=== PATIENT | male | born 1975 | race Caucasian/White ===

== ENCOUNTER 2018-01-10 10:08 | Inpatient (IN) | payer BC ==
[2018-01-10] MEDS: PIPER-TAZO 3.375 GM IV (PMX) 100 ML IVPB ×2 (12:22→18:10)
[2018-01-10] MEDS: SOD CHLORIDE 0.9% 1,000 ML IV ×2 (12:22→18:10)
[2018-01-10 12:36] LABS: ADD MAN DIFF? NO
[2018-01-10 12:39] LABS: WHITE BLOOD COUNT 9.1 10^3/ul (4.8-10.8)
[2018-01-10 12:39] LABS: BASOPHIL # 0.1 10^3/ul (0.0-0.1); BASOPHILS % 0.9 % (0.0-2.0); EOSINOPHILS # 0.2 10^3/ul (0.0-0.5); EOSINOPHILS % 2.4 % (0.0-7.0); HEMATOCRIT 38.1 % (42.0-52.0); HEMOGLOBIN 12.6 g/dl (14.0-18.0); LYMPHOCYTES # 3.1 10^3/ul (0.8-2.9); LYMPHOCYTES % 33.6 % (15.0-51.0); MEAN CORPUSCULAR HEMOGLOBIN 28.8 pg (29.0-33.0); MEAN CORPUSCULAR HGB CONC 33.1 g/dl (32.0-37.0); MEAN PLATELET VOLUME 12.1 fl (7.4-10.4); MONOCYTE # 0.6 10^3/ul (0.3-0.9); MONOCYTES % 6.6 % (0.0-11.0); NEUTROPHIL # 5.1 10^3/ul (1.6-7.5); NEUTROPHILS % 56.2 % (39.0-77.0); PLATELET COUNT 228 10^3/UL (140-415); RED BLOOD COUNT 4.38 10^6/ul (4.70-6.10)
[2018-01-10 12:57] LABS: ANION GAP 14 (8-16); BLOOD UREA NITROGEN 19 mg/dl (7-20); CALCIUM 9.1 mg/dl (8.4-10.2); CARBON DIOXIDE 29 mmol/L (21-31); CHLORIDE 103 mmol/L (97-110); CREATININE 0.81 mg/dl (0.61-1.24); GLUCOSE 333 mg/dl (70-220); POTASSIUM 4.5 mmol/L (3.5-5.1); SODIUM 141 mmol/L (135-144)
[2018-01-10 12:58] LABS: INR 0.88; PT RATIO 0.9
[2018-01-10 12:59] LABS: PARTIAL THROMBOPLASTIN TIME 30.9 Sec (25.0-35.0)
[2018-01-10] MEDS: ONDANSETRON 4 MG INJ IV (13:06)
[2018-01-10] MEDS: morphine 4 MG/ML VIAL IV (13:06)
[2018-01-10] MEDS ORDERED: VANCOMYCIN IV PER PHARMACY XX ×2 (16:30→17:30)
[2018-01-10] MEDS ORDERED: NACL 0.9% 3 ML SYG IV (17:30)
[2018-01-10] MEDS ORDERED: ACETAMINOPHEN 325 MG TAB PO (17:30)
[2018-01-10] MEDS ORDERED: MAGNESIUM HYDROXIDE 30ML CUP PO (17:30)
[2018-01-10] MEDS ORDERED: ZOLPIDEM 5 MG TAB PO (17:30)
[2018-01-10] MEDS ORDERED: DOCUSATE SODIUM 100 MG CAP PO (17:30)
[2018-01-10] MEDS: morphine 2 MG INJ IV ×2 (17:42→22:03)
[2018-01-10] MEDS ORDERED: GLUCOSE GEL 15 GRAM TUBE BUCCAL (18:00)
[2018-01-10] MEDS ORDERED: GLUCOSE GEL 15 GRAM TUBE PO ×2 (18:00)
[2018-01-10] MEDS ORDERED: GLUCAGON 1 MG INJ IM (18:00)
[2018-01-10] MEDS ORDERED: DEXTROSE 50% 50 ML SYRINGE IV ×2 (18:00)
[2018-01-10] MEDS: INSULIN ASPART [NOVOLOG] 3 ML PEN SC ×2 (18:14→21:09)
[2018-01-10] MEDS: VANCOMYCIN 1.75 GM in SOD CHLORIDE 0.9% 500 ML IVPB (19:27)
[2018-01-10] MEDS: NPH, HUMAN INSULIN ISOPHANE 3ML VIAL SC (19:28)
[2018-01-10] MEDS: HYDROCODONE/APAP (5/325) TAB PO (19:56)
[2018-01-10] MEDS: ATORVASTATIN 20 MG TAB PO (21:07)
[2018-01-10] MEDS: INSULIN GLARGINE [LANtus] 3 ML PEN SC (21:10)
[2018-01-11] MEDS: PIPER-TAZO 3.375 GM IV (PMX) 100 ML IVPB ×2 (02:09→12:18)
[2018-01-11] MEDS: ACCU-CHEK XX (02:09)
[2018-01-11] MEDS: HYDROCODONE/APAP (5/325) TAB PO ×2 (02:15→08:32)
[2018-01-11] MEDS: PANTOPRAZOLE (EC) 40 MG TAB PO (05:46)
[2018-01-11] MEDS: VANCOMYCIN 1.75 GM in SOD CHLORIDE 0.9% 500 ML IVPB ×2 (05:46→17:27)
[2018-01-11] MEDS: morphine 2 MG INJ IV ×3 (05:47→14:21)
[2018-01-11 06:21] LABS: ADD MAN DIFF? NO
[2018-01-11 06:40] LABS: BASOPHIL # 0.1 10^3/ul (0.0-0.1); BASOPHILS % 0.8 % (0.0-2.0); EOSINOPHILS # 0.3 10^3/ul (0.0-0.5); EOSINOPHILS % 3.4 % (0.0-7.0); HEMATOCRIT 33.4 % (42.0-52.0); HEMOGLOBIN 11.2 g/dl (14.0-18.0); LYMPHOCYTES # 3.1 10^3/ul (0.8-2.9); LYMPHOCYTES % 41.5 % (15.0-51.0); MEAN CORPUSCULAR HEMOGLOBIN 29.4 pg (29.0-33.0); MEAN CORPUSCULAR HGB CONC 33.5 g/dl (32.0-37.0); MEAN CORPUSCULAR VOLUME 87.7 fl (82.0-101.0); MEAN PLATELET VOLUME 12.3 fl (7.4-10.4); MONOCYTE # 0.5 10^3/ul (0.3-0.9); MONOCYTES % 6.2 % (0.0-11.0); NEUTROPHIL # 3.6 10^3/ul (1.6-7.5); PLATELET COUNT 210 10^3/UL (140-415); RED BLOOD COUNT 3.81 10^6/ul (4.70-6.10); RED CELL DISTRIBUTION WIDTH 13.1 % (11.5-14.5)
[2018-01-11 06:40] LABS: WHITE BLOOD COUNT 7.6 10^3/ul (4.8-10.8)
[2018-01-11 07:02] LABS: ALANINE AMINOTRANSFERASE 17 IU/L (13-69); ALBUMIN/GLOBULIN RATIO 0.96; ALKALINE PHOSPHATASE 78 IU/L (42-121); ANION GAP 10 (8-16); ASPARTATE AMINO TRANSFERASE 12 IU/L (15-46); BILIRUBIN,INDIRECT 0.1 mg/dl (0-1.1); BILIRUBIN,TOTAL 0.1 mg/dl (0.2-1.3); BLOOD UREA NITROGEN 21 mg/dl (7-20); CALCIUM 8.7 mg/dl (8.4-10.2); CARBON DIOXIDE 31 mmol/L (21-31); CHLORIDE 108 mmol/L (97-110); GLUCOSE 130 mg/dl (70-220); MAGNESIUM 1.6 mg/dl (1.7-2.5); PHOSPHORUS 3.7 mg/dl (2.5-4.9); POTASSIUM 4.1 mmol/L (3.5-5.1); SODIUM 145 mmol/L (135-144); TOTAL PROTEIN 6.1 g/dl (6.1-8.1)
[2018-01-11] MEDS: INSULIN ASPART [NOVOLOG] 3 ML PEN SC ×4 (08:15→20:36)
[2018-01-11] MEDS: ENOXAPARIN 40 MG/0.4 ML SYG SC (08:35)
[2018-01-11] MEDS: NPH, HUMAN INSULIN ISOPHANE 3ML VIAL SC ×3 (09:15→17:33)
[2018-01-11] MEDS: MAGNESIUM OXIDE 400 MG TAB PO ×2 (12:23→20:37)
[2018-01-11] MEDS: SOD CHLORIDE 0.9% 1,000 ML IV (13:13)
[2018-01-11] MEDS: CEFTRIAXONE 1 GM/50 ML (PMX) 50 ML IVPB (14:21)
[2018-01-11] MEDS: OXYCODONE/ACETAMINOPHEN (5/325) TAB PO ×2 (16:27→20:37)
[2018-01-11] MEDS: morphine LIQ (10 MG/5 ML) CUP PO ×2 (18:59→23:12)
[2018-01-11] MEDS: ATORVASTATIN 20 MG TAB PO (20:36)
[2018-01-11] MEDS: INSULIN GLARGINE [LANtus] 3 ML PEN SC (20:42)
[2018-01-12] MEDS: ACCU-CHEK XX (02:00)
[2018-01-12] MEDS: OXYCODONE/ACETAMINOPHEN (5/325) TAB PO ×2 (02:37→20:51)
[2018-01-12] MEDS: PANTOPRAZOLE (EC) 40 MG TAB PO (05:08)
[2018-01-12] MEDS: morphine LIQ (10 MG/5 ML) CUP PO (05:08)
[2018-01-12] MEDS: SOD CHLORIDE 0.9% 1,000 ML IV ×2 (05:35→09:13)
[2018-01-12 05:36] LABS: ADD MAN DIFF? NO
[2018-01-12 05:40] LABS: BASOPHIL # 0.1 10^3/ul (0.0-0.1); BASOPHILS % 0.7 % (0.0-2.0); EOSINOPHILS # 0.2 10^3/ul (0.0-0.5); EOSINOPHILS % 3.2 % (0.0-7.0); HEMATOCRIT 35.8 % (42.0-52.0); HEMOGLOBIN 11.8 g/dl (14.0-18.0); LYMPHOCYTES # 2.7 10^3/ul (0.8-2.9); LYMPHOCYTES % 38.3 % (15.0-51.0); MEAN CORPUSCULAR HEMOGLOBIN 29.1 pg (29.0-33.0); MEAN CORPUSCULAR VOLUME 88.2 fl (82.0-101.0); MEAN PLATELET VOLUME 11.6 fl (7.4-10.4); MONOCYTE # 0.5 10^3/ul (0.3-0.9); MONOCYTES % 6.8 % (0.0-11.0); NEUTROPHIL # 3.6 10^3/ul (1.6-7.5); NEUTROPHILS % 50.9 % (39.0-77.0); PLATELET COUNT 226 10^3/UL (140-415); RED BLOOD COUNT 4.06 10^6/ul (4.70-6.10)
[2018-01-12 05:40] LABS: WHITE BLOOD COUNT 7.1 10^3/ul (4.8-10.8)
[2018-01-12 06:07] LABS: VANCOMYCIN,TROUGH 13.7 ug/ml (10.0-20.0)
[2018-01-12] MEDS: VANCOMYCIN 1.75 GM in SOD CHLORIDE 0.9% 500 ML IVPB ×2 (06:38→17:08)
[2018-01-12] MEDS: INSULIN ASPART [NOVOLOG] 3 ML PEN SC ×4 (08:17→20:42)
[2018-01-12] MEDS: NPH, HUMAN INSULIN ISOPHANE 3ML VIAL SC ×3 (08:18→17:12)
[2018-01-12] MEDS: ENOXAPARIN 40 MG/0.4 ML SYG SC (08:25)
[2018-01-12] MEDS: HYDROmorphONE 0.5 MG/0.5 ML SYG IV ×4 (08:30→22:48)
[2018-01-12] MEDS: CEFTRIAXONE 1 GM/50 ML (PMX) 50 ML IVPB (12:26)
[2018-01-12] MEDS: ATORVASTATIN 20 MG TAB PO (20:38)
[2018-01-12] MEDS: INSULIN GLARGINE [LANtus] 3 ML PEN SC (20:42)
[2018-01-13] MEDS: ACCU-CHEK XX (02:00)
[2018-01-13] MEDS: HYDROmorphONE 0.5 MG/0.5 ML SYG IV ×5 (02:59→21:15)
[2018-01-13] MEDS: PANTOPRAZOLE (EC) 40 MG TAB PO (05:47)
[2018-01-13] MEDS: VANCOMYCIN 1.75 GM in SOD CHLORIDE 0.9% 500 ML IVPB ×2 (05:47→17:28)
[2018-01-13 06:46] LABS: ANION GAP 14 (8-16); BLOOD UREA NITROGEN 20 mg/dl (7-20); CALCIUM 8.5 mg/dl (8.4-10.2); CARBON DIOXIDE 29 mmol/L (21-31); CHLORIDE 107 mmol/L (97-110); CREATININE 0.77 mg/dl (0.61-1.24); GLUCOSE 113 mg/dl (70-220); POTASSIUM 3.9 mmol/L (3.5-5.1); SODIUM 146 mmol/L (135-144)
[2018-01-13] MEDS: INSULIN ASPART [NOVOLOG] 3 ML PEN SC ×4 (08:15→20:59)
[2018-01-13] MEDS: NPH, HUMAN INSULIN ISOPHANE 3ML VIAL SC ×3 (09:04→17:31)
[2018-01-13] MEDS: ENOXAPARIN 40 MG/0.4 ML SYG SC (09:05)
[2018-01-13] MEDS: morphine LIQ (10 MG/5 ML) CUP PO (09:25)
[2018-01-13] MEDS: CEFTRIAXONE 1 GM/50 ML (PMX) 50 ML IVPB (12:49)
[2018-01-13] MEDS: ATORVASTATIN 20 MG TAB PO (20:47)
[2018-01-13] MEDS: INSULIN GLARGINE [LANtus] 3 ML PEN SC (20:55)
[2018-01-14] MEDS: DEXTROSE 5%-0.45% NACL 1,000 ML IV ×2 (00:15→20:00)
[2018-01-14] MEDS: HYDROmorphONE 0.5 MG/0.5 ML SYG IV ×5 (01:23→23:08)
[2018-01-14] MEDS: ACCU-CHEK XX (02:00)
[2018-01-14] MEDS: PANTOPRAZOLE (EC) 40 MG TAB PO (05:32)
[2018-01-14] MEDS: VANCOMYCIN 1.75 GM in SOD CHLORIDE 0.9% 500 ML IVPB ×2 (05:48→20:03)
[2018-01-14] MEDS: NPH, HUMAN INSULIN ISOPHANE 3ML VIAL SC ×4 (08:00→17:45)
[2018-01-14] MEDS: INSULIN ASPART [NOVOLOG] 3 ML PEN SC ×4 (08:05→22:25)
[2018-01-14] MEDS: ENOXAPARIN 40 MG/0.4 ML SYG SC (09:00)
[2018-01-14] MEDS: CEFTRIAXONE 1 GM/50 ML (PMX) 50 ML IVPB (12:34)
[2018-01-14] MEDS: ONDANSETRON 4 MG INJ IV (15:43)
[2018-01-14] MEDS: POLYMYXIN/BACITRACIN 1L IRRIG (16:14)
[2018-01-14] MEDS: LIDOCAINE 2% (MDV) 20 ML INJ (16:15)
[2018-01-14] MEDS ORDERED: FENTAnyl 50 MCG/ML VIAL (17:24)
[2018-01-14] MEDS ORDERED: MIDAZOLAM 1 MG/ML 2 ML INJ (17:24)
[2018-01-14] MEDS ORDERED: PROPOFOL 20 ML (17:24)
[2018-01-14] MEDS ORDERED: ONDANSETRON 4 MG INJ (17:38)
[2018-01-14] MEDS ORDERED: CEFAZOLIN 1 GM INJ (17:38)
[2018-01-14] MEDS ORDERED: DEXAMETHASONE 4 MG/ML 1 ML INJ (17:38)
[2018-01-14] MEDS ORDERED: KETOROLAC 30 MG INJ (17:38)
[2018-01-14] MEDS ORDERED: METOCLOPRAMIDE 10 MG INJ (17:38)
[2018-01-14] MEDS ORDERED: PHENYLephrine (100 MCG/ML) 5ML SYG (17:39)
[2018-01-14] MEDS ORDERED: HYDROmorphONE (0.2 MG/ML) 10ML SYG IV ×2 (18:00)
[2018-01-14] MEDS ORDERED: METOCLOPRAMIDE 10 MG INJ IV (18:00)
[2018-01-14] MEDS ORDERED: LABETALOL HCL 20MG INJ IV (18:00)
[2018-01-14] MEDS ORDERED: EPHEDrine SULFATE 50 MG/5 ML SYG IV (18:00)
[2018-01-14] MEDS ORDERED: OXYCODONE/ACETAMINOPHEN (5/325) TAB PO (18:00)
[2018-01-14] MEDS ORDERED: FENTAnyl 50 MCG/ML VIAL IV ×3 (18:00)
[2018-01-14] MEDS ORDERED: ONDANSETRON 4 MG INJ IV (18:00)
[2018-01-14] MEDS ORDERED: ROPIVACAINE 0.5 % 30 ML VIAL (18:01)
[2018-01-14] MEDS: BUPIVACAINE 0.5% (SDV) 30 ML INJ (18:09)
[2018-01-14] MEDS: HYDROmorphONE (0.2 MG/ML) 10ML SYG IV ×2 (18:42→18:57)
[2018-01-14] MEDS: OXYCODONE/ACETAMINOPHEN (5/325) TAB PO (20:11)
[2018-01-14] MEDS: ATORVASTATIN 20 MG TAB PO (22:21)
[2018-01-14] MEDS: INSULIN GLARGINE [LANtus] 3 ML PEN SC (22:24)
[2018-01-15] MEDS: ACCU-CHEK XX (02:02)
[2018-01-15] MEDS: HYDROmorphONE 0.5 MG/0.5 ML SYG IV ×5 (03:12→22:57)
[2018-01-15] MEDS: PANTOPRAZOLE (EC) 40 MG TAB PO (05:27)
[2018-01-15 06:32] LABS: VANCOMYCIN,TROUGH 15.3 ug/ml (10.0-20.0)
[2018-01-15] MEDS: VANCOMYCIN 1.75 GM in SOD CHLORIDE 0.9% 500 ML IVPB ×2 (06:42→17:35)
[2018-01-15] MEDS: NPH, HUMAN INSULIN ISOPHANE 3ML VIAL SC ×3 (08:12→17:35)
[2018-01-15] MEDS: INSULIN ASPART [NOVOLOG] 3 ML PEN SC ×4 (08:12→20:49)
[2018-01-15] MEDS: ENOXAPARIN 40 MG/0.4 ML SYG SC (08:12)
[2018-01-15] MEDS: OXYCODONE/ACETAMINOPHEN (5/325) TAB PO ×2 (11:12→16:29)
[2018-01-15] MEDS: CEFTRIAXONE 1 GM/50 ML (PMX) 50 ML IVPB (13:08)
[2018-01-15] MEDS: ATORVASTATIN 20 MG TAB PO (20:43)
[2018-01-15] MEDS: INSULIN GLARGINE [LANtus] 3 ML PEN SC (20:49)
[2018-01-16] MEDS: ACCU-CHEK XX (02:00)
[2018-01-16] MEDS: HYDROmorphONE 0.5 MG/0.5 ML SYG IV ×5 (03:00→22:29)
[2018-01-16] MEDS: PANTOPRAZOLE (EC) 40 MG TAB PO (06:06)
[2018-01-16] MEDS: VANCOMYCIN 1.75 GM in SOD CHLORIDE 0.9% 500 ML IVPB ×2 (06:07→17:34)
[2018-01-16 06:34] LABS: BLOOD UREA NITROGEN 18 mg/dl (7-20)
[2018-01-16 06:34] LABS: CREATININE 0.73 mg/dl (0.61-1.24)
[2018-01-16] MEDS: NPH, HUMAN INSULIN ISOPHANE 3ML VIAL SC ×3 (07:53→17:34)
[2018-01-16] MEDS: INSULIN ASPART [NOVOLOG] 3 ML PEN SC ×4 (07:54→21:07)
[2018-01-16] MEDS: ENOXAPARIN 40 MG/0.4 ML SYG SC (08:49)
[2018-01-16] MEDS: OXYCODONE/ACETAMINOPHEN (5/325) TAB PO ×2 (09:37→15:34)
[2018-01-16] MEDS: CEFTRIAXONE 1 GM/50 ML (PMX) 50 ML IVPB (12:32)
[2018-01-16] MEDS: ATORVASTATIN 20 MG TAB PO (21:00)
[2018-01-16] MEDS: INSULIN GLARGINE [LANtus] 3 ML PEN SC (21:07)
[2018-01-17] MEDS: OXYCODONE/ACETAMINOPHEN (5/325) TAB PO ×4 (01:54→23:08)
[2018-01-17] MEDS: ACCU-CHEK XX (02:00)
[2018-01-17] MEDS: HYDROmorphONE 0.5 MG/0.5 ML SYG IV ×5 (02:47→20:41)
[2018-01-17] MEDS: PANTOPRAZOLE (EC) 40 MG TAB PO (05:29)
[2018-01-17] MEDS: VANCOMYCIN 1.75 GM in SOD CHLORIDE 0.9% 500 ML IVPB ×2 (05:30→17:41)
[2018-01-17] MEDS: NPH, HUMAN INSULIN ISOPHANE 3ML VIAL SC ×3 (07:51→17:39)
[2018-01-17] MEDS: INSULIN ASPART [NOVOLOG] 3 ML PEN SC ×4 (07:51→20:37)
[2018-01-17] MEDS: ENOXAPARIN 40 MG/0.4 ML SYG SC (08:16)
[2018-01-17] MEDS: CEFTRIAXONE 1 GM/50 ML (PMX) 50 ML IVPB (12:31)
[2018-01-17] MEDS: ATORVASTATIN 20 MG TAB PO (20:33)
[2018-01-17] MEDS: GABAPENTIN 100 MG CAP PO (20:33)
[2018-01-17] MEDS: INSULIN GLARGINE [LANtus] 3 ML PEN SC (20:38)
[2018-01-18] MEDS: HYDROmorphONE 0.5 MG/0.5 ML SYG IV ×4 (02:20→14:45)
[2018-01-18] MEDS: ACCU-CHEK XX (02:20)
[2018-01-18] MEDS: OXYCODONE/ACETAMINOPHEN (5/325) TAB PO (04:12)
[2018-01-18] MEDS: PANTOPRAZOLE (EC) 40 MG TAB PO (06:19)
[2018-01-18] MEDS: VANCOMYCIN 1.75 GM in SOD CHLORIDE 0.9% 500 ML IVPB (06:19)
[2018-01-18] MEDS: INSULIN ASPART [NOVOLOG] 3 ML PEN SC ×3 (08:13→17:42)
[2018-01-18] MEDS: ENOXAPARIN 40 MG/0.4 ML SYG SC (08:19)
[2018-01-18] MEDS: NPH, HUMAN INSULIN ISOPHANE 3ML VIAL SC ×3 (08:19→17:46)
[2018-01-18] MEDS: HYDROCODONE/APAP (5/325) TAB PO ×2 (12:01→17:49)
[2018-01-18] MEDS: CEFTRIAXONE 1 GM/50 ML (PMX) 50 ML IVPB (13:11)
== END 2018-01-18 18:30 | disposition home health service (06) | DRG 617 ==
LOC: E/R 10:08 → MS2 13:13
PROC: 0Y6P0Z1 Detachment at Right 1st Toe, High, Open Approach (ICD-10-PCS; principal; 2018-01-14 17:17)
DX: E10.621 Type 1 diabetes mellitus with foot ulcer (principal); M86.671 Other chronic osteomyelitis, right ankle and foot; E10.42 Type 1 diabetes mellitus with diabetic polyneuropathy; E10.69 Type 1 diabetes mellitus with other specified complication; E10.65 Type 1 diabetes mellitus with hyperglycemia; L97.511 Non-pressure chronic ulcer of other part of right foot limited to breakdown of skin; E10.628 Type 1 diabetes mellitus with other skin complications; L03.031 Cellulitis of right toe; D63.8 Anemia in other chronic diseases classified elsewhere; E78.5 Hyperlipidemia, unspecified; Z89.421 Acquired absence of other right toe(s); Z79.4 Long term (current) use of insulin
CPT/HCPCS: 36415; 73630; 73630-LT; 73660; 73718; 80048; 80053; 80202; 82565; 82962; 83735; 84100; 84520; 85025; 85610; 85730; 87040; 87070; 87102; 88305; 96365; 96366; 96375; 99285-25

== ENCOUNTER 2018-09-25 17:55 | Inpatient (IN) | payer BC ==
[2018-09-25 20:42] LABS: WHITE BLOOD COUNT 20.4 10^3/ul (4.8-10.8)
[2018-09-25 20:42] LABS: HEMOGLOBIN 13.6 g/dl (14.0-18.0); MEAN CORPUSCULAR HEMOGLOBIN 28.5 pg (29.0-33.0); MEAN CORPUSCULAR HGB CONC 33.2 g/dl (32.0-37.0); MEAN CORPUSCULAR VOLUME 85.8 fl (82.0-101.0); MEAN PLATELET VOLUME 12.1 fl (7.4-10.4); PLATELET COUNT 201 10^3/UL (140-415); RED BLOOD COUNT 4.78 10^6/ul (4.70-6.10); RED CELL DISTRIBUTION WIDTH 12.6 % (11.5-14.5)
[2018-09-25 20:45] LABS: ADD MAN DIFF? YES
[2018-09-25 20:48] LABS: ADD UMIC YES; UR ASCORBIC ACID NEGATIVE (NEGATIVE); UR BILIRUBIN (Dip) NEGATIVE (NEGATIVE); UR BLOOD (Dip) 1+ mg/dL (NEGATIVE); UR CLARITY CLEAR (CLEAR); UR COLOR YELLOW (YELLOW); UR GLUCOSE (Dip) 3+ mg/dL (NEGATIVE); UR KETONES (Dip) NEGATIVE (NEGATIVE); UR LEUKOCYTE ESTERASE (Dip) NEGATIVE Leu/ul (NEGATIVE); UR NITRITE (Dip) NEGATIVE (NEGATIVE); UR RBC 10 /HPF (0-5); UR SPECIFIC GRAVITY (Dip) 1.031 (1.003-1.030); UR TOTAL PROTEIN (Dip) 3+ mg/dl (NEGATIVE); UR UROBILINOGEN (Dip) NEGATIVE (NEGATIVE); UR WBC 1 /HPF (0-5)
[2018-09-25 20:56] LABS: INR 0.94; PROTIME 12.7 Sec (11.9-14.9)
[2018-09-25 20:57] LABS: PARTIAL THROMBOPLASTIN TIME 28.4 Sec (23.0-35.0)
[2018-09-25 21:05] LABS: ALANINE AMINOTRANSFERASE 15 IU/L (13-69); ALBUMIN 3.8 g/dl (3.3-4.9); ALBUMIN/GLOBULIN RATIO 1.08; ALKALINE PHOSPHATASE 116 IU/L (42-121); ANION GAP 16 (5-13); ASPARTATE AMINO TRANSFERASE 23 IU/L (15-46); BILIRUBIN,INDIRECT 0.3 mg/dl (0-1.1); BILIRUBIN,TOTAL 0.3 mg/dl (0.2-1.3); BLOOD UREA NITROGEN 23 mg/dl (7-20); C-REACTIVE PROTEIN 6.9 mg/dl (0.0-0.9); CARBON DIOXIDE 24 mmol/L (21-31); CHLORIDE 95 mmol/L (97-110); CREATININE 1.26 mg/dl (0.61-1.24); Estimated GFR > 60 mL/min (>60); POTASSIUM 4.4 mmol/L (3.5-5.1); SODIUM 135 mmol/L (135-144); TOTAL PROTEIN 7.3 g/dl (6.1-8.1)
[2018-09-25 21:09] LABS: GLUCOSE 437 mg/dl (70-220)
[2018-09-25 21:13] LABS: TROPONIN-I < 0.012 ng/ml (0.000-0.120)
[2018-09-25 21:17] LABS: BAND NEUTROPHILS #M 2.8 10^3/ul (0.0-0.6); BAND NEUTROPHILS % (M) 14 % (0-4); LYMPHOCYTES #M 2.4 10^3/ul (0.8-2.9); LYMPHOCYTES % (M) 12 % (15-51); MONOCYTES % (M) 5 % (0-11); PLATELET ESTIMATE NORMAL; REACTIVE LYMPHOCYTES #M 0.2 10^3/ul (0.0-0.0); REACTIVE LYMPHOCYTES% (M) 1 % (0-0); SEG NEUT #M 14.4 10^3/ul (1.6-7.5); SEGMENTED NEUTROPHILS (M) % 68 % (39-77); SMUDGE%M 4 % (0-0)
[2018-09-25 21:51] LABS: ERYTHROCYTE SEDIMENTATION RATE 48 mm/Hr (0-15)
[2018-09-25] MEDS: CEFEPIME 2GM/50 ML (PMX) 50 ML IVPB (22:02)
[2018-09-25] MEDS: SODIUM CHLORIDE 0.9% 1L BAG IV* (22:03)
[2018-09-25] MEDS: morphine 4 MG/ML VIAL IV (22:15)
[2018-09-25] MEDS: ONDANSETRON 4 MG INJ IV (22:15)
[2018-09-25] MEDS: VANCOMYCIN 1 GM (PMX) 250 ML IVPB (22:45)
[2018-09-26 00:11] LABS: LACTIC ACID 1.2 mmol/L (0.5-2.0)
[2018-09-26] MEDS: HYDROmorphONE 0.5 MG/0.5 ML SYG IV (01:53)
[2018-09-26] MEDS ORDERED: VANCOMYCIN IV PER PHARMACY XX (05:00)
[2018-09-26] MEDS ORDERED: GLUCAGON 1 MG INJ IM (05:00)
[2018-09-26] MEDS ORDERED: GLUCOSE GEL 15 GRAM TUBE PO ×2 (05:00)
[2018-09-26] MEDS ORDERED: morphine 2 MG INJ IV (05:00)
[2018-09-26] MEDS ORDERED: GLUCOSE GEL 15 GRAM TUBE BUCCAL (05:00)
[2018-09-26] MEDS ORDERED: DEXTROSE 50% 50 ML SYRINGE IV ×2 (05:00)
[2018-09-26] MEDS: SOD CHLORIDE 0.9% 1,000 ML IV ×3 (06:11→18:12)
[2018-09-26] MEDS: morphine 4 MG/ML VIAL IV ×5 (06:19→23:57)
[2018-09-26] MEDS: VANCOMYCIN HCL 1.25 GM in SOD CHLORIDE 0.9% 250 ML IVPB ×2 (09:00→19:31)
[2018-09-26] MEDS: NPH, HUMAN INSULIN ISOPHANE 3ML VIAL SC ×3 (09:42→17:38)
[2018-09-26] MEDS: INSULIN ASPART [NOVOLOG] 3 ML PEN SC ×4 (09:44→21:06)
[2018-09-26] MEDS: CEFEPIME 1GM/50 ML (PMX) 50 ML IVPB ×2 (12:14→22:32)
[2018-09-26] MEDS: INSULIN GLARGINE [LANtus] 3 ML PEN SC (21:05)
[2018-09-26] MEDS: GABAPENTIN 100 MG CAP PO (21:07)
[2018-09-27] MEDS: ACCU-CHEK XX (02:21)
[2018-09-27 05:07] LABS: ADD MAN DIFF? NO
[2018-09-27 05:10] LABS: WHITE BLOOD COUNT 9.3 10^3/ul (4.8-10.8)
[2018-09-27 05:10] LABS: BASOPHILS % 0.4 % (0.0-2.0); EOSINOPHILS # 0.2 10^3/ul (0.0-0.5); EOSINOPHILS % 1.6 % (0.0-7.0); HEMATOCRIT 37.2 % (42.0-52.0); LYMPHOCYTES % 21.4 % (15.0-51.0); MEAN CORPUSCULAR HEMOGLOBIN 28.7 pg (29.0-33.0); MEAN CORPUSCULAR HGB CONC 32.3 g/dl (32.0-37.0); MONOCYTES % 10.7 % (0.0-11.0); NEUTROPHIL # 6.1 10^3/ul (1.6-7.5); NEUTROPHILS % 65.7 % (39.0-77.0); PLATELET COUNT 166 10^3/UL (140-415); RED BLOOD COUNT 4.18 10^6/ul (4.70-6.10); RED CELL DISTRIBUTION WIDTH 12.9 % (11.5-14.5)
[2018-09-27] MEDS: PANTOPRAZOLE (EC) 40 MG TAB PO (05:15)
[2018-09-27] MEDS: SOD CHLORIDE 0.9% 1,000 ML IV ×2 (05:15→12:42)
[2018-09-27 05:17] LABS: HEMOGLOBIN A1C 13.1 % (0-5.9)
[2018-09-27] MEDS: morphine 4 MG/ML VIAL IV ×4 (05:19→22:49)
[2018-09-27 05:34] LABS: ANION GAP 8 (5-13); BLOOD UREA NITROGEN 15 mg/dl (7-20); CALCIUM 8.6 mg/dl (8.4-10.2); CARBON DIOXIDE 27 mmol/L (21-31); CHLORIDE 104 mmol/L (97-110); CREATININE 0.87 mg/dl (0.61-1.24); Estimated GFR > 60 mL/min (>60); GLUCOSE 271 mg/dl (70-220); SODIUM 139 mmol/L (135-144)
[2018-09-27] MEDS: VANCOMYCIN HCL 1.25 GM in SOD CHLORIDE 0.9% 250 ML IVPB (06:38)
[2018-09-27] MEDS: NPH, HUMAN INSULIN ISOPHANE 3ML VIAL SC ×2 (07:30→11:30)
[2018-09-27] MEDS: INSULIN ASPART [NOVOLOG] 3 ML PEN SC ×5 (08:22→20:29)
[2018-09-27] MEDS: GABAPENTIN 100 MG CAP PO ×3 (09:50→20:26)
[2018-09-27] MEDS: ENOXAPARIN 40 MG/0.4 ML SYG SC (09:55)
[2018-09-27] MEDS: CEFEPIME 1GM/50 ML (PMX) 50 ML IVPB ×2 (10:42→21:58)
[2018-09-27 18:28] LABS: C-REACTIVE PROTEIN 5.2 mg/dl (0.0-0.9)
[2018-09-27 18:33] LABS: VANCOMYCIN,TROUGH 9.8 ug/ml (10.0-20.0)
[2018-09-27 19:04] LABS: ERYTHROCYTE SEDIMENTATION RATE 56 mm/Hr (0-15)
[2018-09-27] MEDS: VANCOMYCIN HCL 1.5 GM in SOD CHLORIDE 0.9% 250 ML IVPB (20:15)
[2018-09-27] MEDS: INSULIN GLARGINE [LANTus] (100 UNITS/ML) SYG SC (20:41)
[2018-09-27] MEDS ORDERED: INSULIN GLARGINE [LANtus] 3 ML PEN SC (21:00)
[2018-09-28] MEDS: ACCU-CHEK XX (02:00)
[2018-09-28] MEDS: morphine 4 MG/ML VIAL IV ×5 (03:05→19:54)
[2018-09-28] MEDS: PANTOPRAZOLE (EC) 40 MG TAB PO (06:06)
[2018-09-28] MEDS: GABAPENTIN 100 MG CAP PO ×3 (08:25→20:41)
[2018-09-28] MEDS: SODIUM HYPOCHLORITE (1/40) 1 APPLIC BTL IRR (08:25)
[2018-09-28] MEDS: CEFEPIME 1GM/50 ML (PMX) 50 ML IVPB ×2 (08:25→20:43)
[2018-09-28] MEDS: INSULIN ASPART [NOVOLOG] 3 ML PEN SC ×7 (08:27→20:42)
[2018-09-28] MEDS: ENOXAPARIN 40 MG/0.4 ML SYG SC (08:28)
[2018-09-28] MEDS: VANCOMYCIN HCL 1.5 GM in SOD CHLORIDE 0.9% 250 ML IVPB ×2 (08:32→19:53)
[2018-09-28] MEDS: ACETAMINOPHEN 325 MG TAB PO (09:02)
[2018-09-28] MEDS: INSULIN GLARGINE [LANTus] (100 UNITS/ML) SYG SC (20:43)
[2018-09-28] MEDS: morphine LIQ (10 MG/5 ML) CUP PO (23:57)
[2018-09-29] MEDS: ACCU-CHEK XX (02:00)
[2018-09-29] MEDS: PANTOPRAZOLE (EC) 40 MG TAB PO (05:51)
[2018-09-29] MEDS: morphine LIQ (10 MG/5 ML) CUP PO ×2 (05:52→11:15)
[2018-09-29 07:08] LABS: ADD MAN DIFF? NO
[2018-09-29 07:17] LABS: BASOPHILS % 0.3 % (0.0-2.0); EOSINOPHILS # 0.2 10^3/ul (0.0-0.5); EOSINOPHILS % 2.4 % (0.0-7.0); HEMATOCRIT 38.1 % (42.0-52.0); HEMOGLOBIN 12.3 g/dl (14.0-18.0); LYMPHOCYTES # 2.5 10^3/ul (0.8-2.9); LYMPHOCYTES % 31.5 % (15.0-51.0); MEAN CORPUSCULAR HEMOGLOBIN 28.1 pg (29.0-33.0); MEAN CORPUSCULAR HGB CONC 32.3 g/dl (32.0-37.0); MEAN CORPUSCULAR VOLUME 87.2 fl (82.0-101.0); MEAN PLATELET VOLUME 11.6 fl (7.4-10.4); MONOCYTE # 0.7 10^3/ul (0.3-0.9); MONOCYTES % 8.7 % (0.0-11.0); NEUTROPHIL # 4.5 10^3/ul (1.6-7.5); NEUTROPHILS % 56.7 % (39.0-77.0); PLATELET COUNT 209 10^3/UL (140-415); RED BLOOD COUNT 4.37 10^6/ul (4.70-6.10); RED CELL DISTRIBUTION WIDTH 12.8 % (11.5-14.5)
[2018-09-29 07:40] LABS: ANION GAP 10 (5-13); BLOOD UREA NITROGEN 16 mg/dl (7-20); CALCIUM 8.7 mg/dl (8.4-10.2); CARBON DIOXIDE 27 mmol/L (21-31); CHLORIDE 103 mmol/L (97-110); Estimated GFR > 60 mL/min (>60); GLUCOSE 317 mg/dl (70-220); SODIUM 140 mmol/L (135-144)
[2018-09-29 07:44] LABS: PHOSPHORUS 3.8 mg/dl (2.5-4.9)
[2018-09-29 07:44] LABS: MAGNESIUM 1.8 mg/dl (1.7-2.5)
[2018-09-29] MEDS: INSULIN ASPART [NOVOLOG] 3 ML PEN SC ×4 (08:20→12:27)
[2018-09-29] MEDS: SODIUM HYPOCHLORITE (1/40) 1 APPLIC BTL IRR (08:22)
[2018-09-29] MEDS: GABAPENTIN 100 MG CAP PO (08:22)
[2018-09-29] MEDS: CEFEPIME 1GM/50 ML (PMX) 50 ML IVPB (08:22)
[2018-09-29] MEDS: ENOXAPARIN 40 MG/0.4 ML SYG SC (08:22)
[2018-09-29] MEDS: VANCOMYCIN HCL 1.5 GM in SOD CHLORIDE 0.9% 250 ML IVPB (09:53)
[2018-09-29 12:43] LABS: C-REACTIVE PROTEIN 2.8 mg/dl (0.0-0.9)
[2018-09-29 13:54] LABS: ERYTHROCYTE SEDIMENTATION RATE 50 mm/Hr (0-15)
== END 2018-09-29 12:30 | disposition home or self-care (01) | DRG 571 ==
LOC: PP2 22:02 → E/R 17:55
PROC: 0JBR0ZZ Excision of Left Foot Subcutaneous Tissue and Fascia, Open Approach (ICD-10-PCS; principal; 2018-09-27)
DX: L03.032 Cellulitis of left toe (principal); R65.10 Systemic inflammatory response syndrome (SIRS) of non-infectious origin without acute organ dysfunction; N17.9 Acute kidney failure, unspecified; E87.2 Acidosis; E10.621 Type 1 diabetes mellitus with foot ulcer; E10.65 Type 1 diabetes mellitus with hyperglycemia; E10.42 Type 1 diabetes mellitus with diabetic polyneuropathy; L97.529 Non-pressure chronic ulcer of other part of left foot with unspecified severity; B35.1 Tinea unguium; D64.9 Anemia, unspecified; E78.5 Hyperlipidemia, unspecified; E66.9 Obesity, unspecified; F17.200 Nicotine dependence, unspecified, uncomplicated; M79.675 Pain in left toe(s); Z68.30 Body mass index [BMI] 30.0-30.9, adult; Z89.411 Acquired absence of right great toe; Z89.421 Acquired absence of other right toe(s)
CPT/HCPCS: 36415; 73630-LT; 74150; 80048; 80053; 80202; 81001; 82962; 83036; 83605; 83735; 84100; 84484; 85025; 85610; 85651; 85730; 86140; 87040; 87070; 87086; 93005; 93923; 93971; 96374; 99291-25

== ENCOUNTER 2019-01-19 09:49 | Emergency (ER) | payer BC ==
[2019-01-19] MEDS: NICARDipine HCL 30 MG CAPSULE PO (10:35)
== END 2019-01-19 12:04 | disposition home or self-care (01) ==
LOC: E/R 09:49
DX: I10 Essential (primary) hypertension (principal); F17.210 Nicotine dependence, cigarettes, uncomplicated; E11.9 Type 2 diabetes mellitus without complications; Z79.4 Long term (current) use of insulin
CPT/HCPCS: 99283; Z7502

== ENCOUNTER 2019-04-10 18:28 | Inpatient (IN) | payer BC ==
[2019-04-10 21:08] LABS: ADD MAN DIFF? NO
[2019-04-10] MEDS: SOD CHLORIDE 0.9% 1,000 ML IV (21:08)
[2019-04-10] MEDS: morphine 4 MG/ML VIAL IV (21:08)
[2019-04-10] MEDS: ONDANSETRON 4 MG INJ IV (21:08)
[2019-04-10] MEDS: MEROPENEM 1 GM/50ML(PMX) 50 ML IVPB (21:08)
[2019-04-10] MEDS: VANCOMYCIN 1 GM (PMX) 250 ML IVPB (21:09)
[2019-04-10 21:12] LABS: BASOPHIL # 0.1 10^3/ul (0.0-0.1); BASOPHILS % 0.6 % (0.0-2.0); EOSINOPHILS # 0.2 10^3/ul (0.0-0.5); EOSINOPHILS % 2.1 % (0.0-7.0); HEMATOCRIT 41.7 % (42.0-52.0); HEMOGLOBIN 13.6 g/dl (14.0-18.0); LYMPHOCYTES # 3.6 10^3/ul (0.8-2.9); LYMPHOCYTES % 33.1 % (15.0-51.0); MEAN CORPUSCULAR HEMOGLOBIN 28.4 pg (29.0-33.0); MEAN CORPUSCULAR HGB CONC 32.6 g/dl (32.0-37.0); MEAN CORPUSCULAR VOLUME 87.1 fl (82.0-101.0); MEAN PLATELET VOLUME 11.5 fl (7.4-10.4); MONOCYTE # 0.7 10^3/ul (0.3-0.9); NEUTROPHIL # 6.3 10^3/ul (1.6-7.5); NEUTROPHILS % 57.9 % (39.0-77.0); PLATELET COUNT 261 10^3/UL (140-415); RED BLOOD COUNT 4.79 10^6/ul (4.70-6.10); RED CELL DISTRIBUTION WIDTH 12.9 % (11.5-14.5)
[2019-04-10 21:12] LABS: WHITE BLOOD COUNT 10.9 10^3/ul (4.8-10.8)
[2019-04-10 21:29] LABS: ALANINE AMINOTRANSFERASE 25 IU/L (13-69); ALBUMIN 3.8 g/dl (3.3-4.9); ALBUMIN/GLOBULIN RATIO 1.02; ALKALINE PHOSPHATASE 116 IU/L (42-121); ANION GAP 6 (5-13); ASPARTATE AMINO TRANSFERASE 16 IU/L (15-46); BILIRUBIN,INDIRECT 0.6 mg/dl (0-1.1); BILIRUBIN,TOTAL 0.6 mg/dl (0.2-1.3); BLOOD UREA NITROGEN 19 mg/dl (7-20); CALCIUM 9.1 mg/dl (8.4-10.2); CARBON DIOXIDE 31 mmol/L (21-31); CHLORIDE 101 mmol/L (97-110); CREATININE 1.32 mg/dl (0.61-1.24); Estimated GFR 59 mL/min (>60); GLUCOSE 395 mg/dl (70-220); POTASSIUM 4.1 mmol/L (3.5-5.1); SODIUM 138 mmol/L (135-144); TOTAL PROTEIN 7.5 g/dl (6.1-8.1)
[2019-04-10 21:31] LABS: LIPASE < 10 U/L (23-300)
[2019-04-10 21:38] LABS: INR 0.89; PARTIAL THROMBOPLASTIN TIME 28.2 Sec (23.0-35.0); PROTIME 12.2 Sec (11.9-14.9)
[2019-04-10 21:41] LABS: TROPONIN-I < 0.012 ng/ml (0.000-0.120)
[2019-04-11] MEDS ORDERED: GLUCOSE GEL 15 GRAM TUBE PO ×2 (03:00)
[2019-04-11] MEDS ORDERED: ACETAMINOPHEN 325 MG TAB PO (03:00)
[2019-04-11] MEDS ORDERED: GLUCOSE GEL 15 GRAM TUBE BUCCAL (03:00)
[2019-04-11] MEDS ORDERED: DEXTROSE 50% 50 ML SYRINGE IV ×2 (03:00)
[2019-04-11] MEDS ORDERED: GLUCAGON 1 MG INJ IM (03:00)
[2019-04-11] MEDS: SOD CHLORIDE 0.9% 1,000 ML IV (03:13)
[2019-04-11] MEDS: morphine 2 MG INJ IV ×5 (03:13→21:13)
[2019-04-11] MEDS: PANTOPRAZOLE (EC) 40 MG TAB PO (06:05)
[2019-04-11 07:10] LABS: ADD MAN DIFF? NO
[2019-04-11 07:17] LABS: WHITE BLOOD COUNT 9.3 10^3/ul (4.8-10.8)
[2019-04-11 07:17] LABS: BASOPHILS % 0.4 % (0.0-2.0); EOSINOPHILS # 0.2 10^3/ul (0.0-0.5); EOSINOPHILS % 2.3 % (0.0-7.0); HEMATOCRIT 39.6 % (42.0-52.0); HEMOGLOBIN 12.7 g/dl (14.0-18.0); LYMPHOCYTES # 3.5 10^3/ul (0.8-2.9); LYMPHOCYTES % 37.3 % (15.0-51.0); MEAN CORPUSCULAR HEMOGLOBIN 28.7 pg (29.0-33.0); MEAN CORPUSCULAR HGB CONC 32.1 g/dl (32.0-37.0); MEAN CORPUSCULAR VOLUME 89.4 fl (82.0-101.0); MEAN PLATELET VOLUME 11.7 fl (7.4-10.4); MONOCYTE # 0.6 10^3/ul (0.3-0.9); MONOCYTES % 6.2 % (0.0-11.0); NEUTROPHILS % 53.5 % (39.0-77.0); PLATELET COUNT 236 10^3/UL (140-415); RED BLOOD COUNT 4.43 10^6/ul (4.70-6.10); RED CELL DISTRIBUTION WIDTH 12.7 % (11.5-14.5)
[2019-04-11 07:45] LABS: ALANINE AMINOTRANSFERASE 17 IU/L (13-69); ALBUMIN 3.4 g/dl (3.3-4.9); ALKALINE PHOSPHATASE 101 IU/L (42-121); ANION GAP 5 (5-13); ASPARTATE AMINO TRANSFERASE 19 IU/L (15-46); BILIRUBIN,INDIRECT 0.5 mg/dl (0-1.1); BILIRUBIN,TOTAL 0.5 mg/dl (0.2-1.3); BLOOD UREA NITROGEN 19 mg/dl (7-20); CALCIUM 8.6 mg/dl (8.4-10.2); CARBON DIOXIDE 29 mmol/L (21-31); CHLORIDE 101 mmol/L (97-110); CREATININE 0.86 mg/dl (0.61-1.24); Estimated GFR > 60 mL/min (>60); GLUCOSE 373 mg/dl (70-220); POTASSIUM 4.5 mmol/L (3.5-5.1); SODIUM 135 mmol/L (135-144); TOTAL PROTEIN 6.8 g/dl (6.1-8.1)
[2019-04-11] MEDS: INSULIN ASPART [NOVOLOG] 3 ML PEN SC ×4 (08:18→21:09)
[2019-04-11] MEDS: ENOXAPARIN 40 MG/0.4 ML SYG SC (09:14)
[2019-04-11] MEDS: MEROPENEM 1 GM/50ML(PMX) 50 ML IVPB ×2 (09:14→23:38)
[2019-04-11] MEDS ORDERED: VANCOMYCIN IV PER PHARMACY XX (13:30)
[2019-04-11] MEDS: VANCOMYCIN HCL 1.75 GM in SOD CHLORIDE 0.9% 500 ML IVPB (18:16)
[2019-04-11] MEDS: HYDROCODONE/APAP (5/325) TAB PO (18:22)
[2019-04-11] MEDS ORDERED: INSULIN GLARGINE [LANtus] 3 ML PEN SC (21:00)
[2019-04-11] MEDS ORDERED: INSULIN GLARGINE [LANTus] (100 UNITS/ML) SYG SC (21:08)
[2019-04-11] MEDS: INSULIN GLARGINE [LANTus] (100 UNITS/ML) SYG SC (22:02)
[2019-04-12] MEDS: DEXTROSE 5%-0.45% NACL 1,000 ML IV (00:05)
[2019-04-12] MEDS: INSULIN ASPART [NOVOLOG] 3 ML PEN SC ×6 (01:09→20:29)
[2019-04-12] MEDS: morphine 2 MG INJ IV ×5 (01:11→22:29)
[2019-04-12] MEDS: ACCU-CHEK XX (02:00)
[2019-04-12] MEDS: VANCOMYCIN 1.5 GM/NS 250 ML 250 ML IVPB ×2 (04:37→20:28)
[2019-04-12] MEDS: PANTOPRAZOLE (EC) 40 MG TAB PO (05:21)
[2019-04-12 05:30] LABS: ADD MAN DIFF? NO
[2019-04-12 05:34] LABS: BASOPHILS % 0.4 % (0.0-2.0); EOSINOPHILS # 0.2 10^3/ul (0.0-0.5); EOSINOPHILS % 2.7 % (0.0-7.0); HEMATOCRIT 36.4 % (42.0-52.0); HEMOGLOBIN 11.8 g/dl (14.0-18.0); LYMPHOCYTES # 2.6 10^3/ul (0.8-2.9); LYMPHOCYTES % 35.4 % (15.0-51.0); MEAN CORPUSCULAR HGB CONC 32.4 g/dl (32.0-37.0); MEAN CORPUSCULAR VOLUME 89.4 fl (82.0-101.0); MEAN PLATELET VOLUME 11.1 fl (7.4-10.4); MONOCYTE # 0.5 10^3/ul (0.3-0.9); MONOCYTES % 7.1 % (0.0-11.0); PLATELET COUNT 209 10^3/UL (140-415); RED BLOOD COUNT 4.07 10^6/ul (4.70-6.10); RED CELL DISTRIBUTION WIDTH 12.8 % (11.5-14.5)
[2019-04-12 05:34] LABS: WHITE BLOOD COUNT 7.3 10^3/ul (4.8-10.8)
[2019-04-12 06:00] LABS: ANION GAP 6 (5-13); BLOOD UREA NITROGEN 19 mg/dl (7-20); CALCIUM 8.4 mg/dl (8.4-10.2); CARBON DIOXIDE 29 mmol/L (21-31); CHLORIDE 104 mmol/L (97-110); CREATININE 0.89 mg/dl (0.61-1.24); Estimated GFR > 60 mL/min (>60); GLUCOSE 138 mg/dl (70-220); MAGNESIUM 1.8 mg/dl (1.7-2.5); POTASSIUM 3.9 mmol/L (3.5-5.1); SODIUM 139 mmol/L (135-144)
[2019-04-12 06:00] LABS: PHOSPHORUS 3.4 mg/dl (2.5-4.9)
[2019-04-12] MEDS: ENOXAPARIN 40 MG/0.4 ML SYG SC (08:22)
[2019-04-12] MEDS: MEROPENEM 1 GM/50ML(PMX) 50 ML IVPB ×2 (08:24→20:28)
[2019-04-12] MEDS ORDERED: PROPOFOL 20 ML (17:42)
[2019-04-12] MEDS ORDERED: FENTAnyl 50 MCG/ML VIAL (17:42)
[2019-04-12] MEDS ORDERED: MIDAZOLAM 1 MG/ML 2 ML INJ (17:42)
[2019-04-12] MEDS ORDERED: hydrALAzine 20 MG INJ IV (18:00)
[2019-04-12] MEDS ORDERED: FENTAnyl 50 MCG/ML VIAL IV (18:00)
[2019-04-12] MEDS ORDERED: HYDROmorphONE 1 MG/5 ML IV SYRINGE IV ×2 (18:00)
[2019-04-12] MEDS ORDERED: LABETALOL HCL 20MG INJ IV (18:00)
[2019-04-12] MEDS: LIDOCAINE 1% (MPF) 30 ML INJ INJ ×2 (18:06)
[2019-04-12] MEDS: FENTAnyl 50 MCG/ML VIAL IV (19:04)
[2019-04-12] MEDS: INSULIN GLARGINE [LANTus] (100 UNITS/ML) SYG SC (20:28)
[2019-04-12] MEDS: HYDROCODONE/APAP (5/325) TAB PO (20:52)
[2019-04-13] MEDS: ACCU-CHEK XX ×2 (02:00→20:28)
[2019-04-13] MEDS: morphine 2 MG INJ IV ×4 (03:00→19:49)
[2019-04-13] MEDS: HYDROCODONE/APAP (5/325) TAB PO ×4 (04:42→22:58)
[2019-04-13] MEDS: PANTOPRAZOLE (EC) 40 MG TAB PO (05:44)
[2019-04-13 07:06] LABS: ADD MAN DIFF? NO
[2019-04-13 07:12] LABS: BASOPHILS % 0.3 % (0.0-2.0); EOSINOPHILS # 0.2 10^3/ul (0.0-0.5); EOSINOPHILS % 2.1 % (0.0-7.0); HEMATOCRIT 38.9 % (42.0-52.0); HEMOGLOBIN 12.4 g/dl (14.0-18.0); LYMPHOCYTES # 2.4 10^3/ul (0.8-2.9); LYMPHOCYTES % 25.8 % (15.0-51.0); MEAN CORPUSCULAR HEMOGLOBIN 28.5 pg (29.0-33.0); MEAN CORPUSCULAR HGB CONC 31.9 g/dl (32.0-37.0); MEAN CORPUSCULAR VOLUME 89.4 fl (82.0-101.0); MEAN PLATELET VOLUME 11.7 fl (7.4-10.4); MONOCYTE # 0.7 10^3/ul (0.3-0.9); MONOCYTES % 7.3 % (0.0-11.0); NEUTROPHIL # 5.9 10^3/ul (1.6-7.5); NEUTROPHILS % 64.3 % (39.0-77.0); PLATELET COUNT 216 10^3/UL (140-415); RED BLOOD COUNT 4.35 10^6/ul (4.70-6.10); RED CELL DISTRIBUTION WIDTH 12.8 % (11.5-14.5)
[2019-04-13 07:12] LABS: WHITE BLOOD COUNT 9.2 10^3/ul (4.8-10.8)
[2019-04-13 07:31] LABS: ANION GAP 5 (5-13); BLOOD UREA NITROGEN 18 mg/dl (7-20); CALCIUM 8.6 mg/dl (8.4-10.2); CARBON DIOXIDE 30 mmol/L (21-31); CHLORIDE 103 mmol/L (97-110); CREATININE 0.93 mg/dl (0.61-1.24); Estimated GFR > 60 mL/min (>60); GLUCOSE 271 mg/dl (70-220); POTASSIUM 4.3 mmol/L (3.5-5.1); SODIUM 138 mmol/L (135-144)
[2019-04-13 07:32] LABS: PHOSPHORUS 3.3 mg/dl (2.5-4.9)
[2019-04-13 07:32] LABS: MAGNESIUM 1.8 mg/dl (1.7-2.5)
[2019-04-13] MEDS: MEROPENEM 1 GM/50ML(PMX) 50 ML IVPB ×2 (08:13→20:27)
[2019-04-13] MEDS: INSULIN ASPART [NOVOLOG] 3 ML PEN SC ×5 (08:15→20:28)
[2019-04-13] MEDS: ENOXAPARIN 40 MG/0.4 ML SYG SC (08:16)
[2019-04-13] MEDS: VANCOMYCIN 1.5 GM/NS 250 ML 250 ML IVPB ×2 (09:09→20:27)
[2019-04-13 19:26] LABS: VANCOMYCIN,TROUGH 12.3 ug/ml (10.0-20.0)
[2019-04-13] MEDS: INSULIN GLARGINE [LANTus] (100 UNITS/ML) SYG SC (20:25)
[2019-04-13] MEDS: ASCORBIC ACID 500 MG TAB PO (20:27)
[2019-04-14] MEDS: morphine 2 MG INJ IV ×4 (00:34→13:53)
[2019-04-14] MEDS: PANTOPRAZOLE (EC) 40 MG TAB PO (05:39)
[2019-04-14] MEDS: HYDROCODONE/APAP (5/325) TAB PO ×2 (05:40→12:07)
[2019-04-14 05:41] LABS: ADD MAN DIFF? NO
[2019-04-14 05:54] LABS: WHITE BLOOD COUNT 8.3 10^3/ul (4.8-10.8)
[2019-04-14 05:54] LABS: BASOPHILS % 0.4 % (0.0-2.0); EOSINOPHILS # 0.2 10^3/ul (0.0-0.5); EOSINOPHILS % 2.4 % (0.0-7.0); HEMATOCRIT 37.9 % (42.0-52.0); HEMOGLOBIN 12.2 g/dl (14.0-18.0); LYMPHOCYTES # 2.8 10^3/ul (0.8-2.9); LYMPHOCYTES % 33.6 % (15.0-51.0); MEAN CORPUSCULAR HEMOGLOBIN 28.7 pg (29.0-33.0); MEAN CORPUSCULAR HGB CONC 32.2 g/dl (32.0-37.0); MEAN CORPUSCULAR VOLUME 89.2 fl (82.0-101.0); MEAN PLATELET VOLUME 11.4 fl (7.4-10.4); MONOCYTE # 0.7 10^3/ul (0.3-0.9); MONOCYTES % 8.4 % (0.0-11.0); NEUTROPHIL # 4.6 10^3/ul (1.6-7.5); NEUTROPHILS % 54.8 % (39.0-77.0); PLATELET COUNT 210 10^3/UL (140-415); RED BLOOD COUNT 4.25 10^6/ul (4.70-6.10); RED CELL DISTRIBUTION WIDTH 13.1 % (11.5-14.5)
[2019-04-14 06:09] LABS: MAGNESIUM 1.8 mg/dl (1.7-2.5)
[2019-04-14 06:09] LABS: PHOSPHORUS 3.2 mg/dl (2.5-4.9)
[2019-04-14 06:13] LABS: ANION GAP 6 (5-13); BLOOD UREA NITROGEN 17 mg/dl (7-20); CALCIUM 8.7 mg/dl (8.4-10.2); CARBON DIOXIDE 29 mmol/L (21-31); CHLORIDE 104 mmol/L (97-110); CREATININE 0.76 mg/dl (0.61-1.24); Estimated GFR > 60 mL/min (>60); GLUCOSE 220 mg/dl (70-220); POTASSIUM 4.2 mmol/L (3.5-5.1); SODIUM 139 mmol/L (135-144)
[2019-04-14] MEDS: VANCOMYCIN 1.5 GM/NS 250 ML 250 ML IVPB (08:03)
[2019-04-14] MEDS: INSULIN ASPART [NOVOLOG] 3 ML PEN SC ×4 (08:07→12:11)
[2019-04-14] MEDS: ZINC SULFATE 220 MG CAP PO (08:40)
[2019-04-14] MEDS: MULTIVITAMINS/MINERALS TAB PO (08:40)
[2019-04-14] MEDS: ASCORBIC ACID 500 MG TAB PO (08:40)
[2019-04-14] MEDS: ENOXAPARIN 40 MG/0.4 ML SYG SC (08:47)
[2019-04-14] MEDS: MEROPENEM 1 GM/50ML(PMX) 50 ML IVPB (11:03)
== END 2019-04-14 17:11 | disposition home health service (06) | DRG 623 ==
LOC: PP2 20:45 → E/R 18:28
PROC: 0JBR0ZX Excision of Left Foot Subcutaneous Tissue and Fascia, Open Approach, Diagnostic (ICD-10-PCS; principal; 2019-04-12 17:47)
PROC: 0HRNX73 Replacement of Left Foot Skin with Autologous Tissue Substitute, Full Thickness, External Approach (ICD-10-PCS; 2019-04-12 17:47)
PROC: 0HRNXK3 Replacement of Left Foot Skin with Nonautologous Tissue Substitute, Full Thickness, External Approach (ICD-10-PCS; 2019-04-12 17:47)
PROC: 0JBR0ZZ Excision of Left Foot Subcutaneous Tissue and Fascia, Open Approach (ICD-10-PCS; 2019-04-12 17:47)
DX: E10.621 Type 1 diabetes mellitus with foot ulcer (principal); L03.116 Cellulitis of left lower limb; N17.9 Acute kidney failure, unspecified; E10.42 Type 1 diabetes mellitus with diabetic polyneuropathy; E10.65 Type 1 diabetes mellitus with hyperglycemia; L03.032 Cellulitis of left toe; I10 Essential (primary) hypertension; I73.9 Peripheral vascular disease, unspecified; F17.200 Nicotine dependence, unspecified, uncomplicated; E78.5 Hyperlipidemia, unspecified; B95.61 Methicillin susceptible Staphylococcus aureus infection as the cause of diseases classified elsewhere; B96.1 Klebsiella pneumoniae [K. pneumoniae] as the cause of diseases classified elsewhere; B95.2 Enterococcus as the cause of diseases classified elsewhere; Z79.4 Long term (current) use of insulin; Z89.411 Acquired absence of right great toe; E10.628 Type 1 diabetes mellitus with other skin complications
CPT/HCPCS: 36415; 71045; 73610; 73610-RT; 73630; 73630-LT; 73718; 80048; 80053; 80202; 82962; 83690; 83735; 84100; 84484; 85025; 85610; 85730; 87040-91; 87070; 88307; 97161; 97167; 99285-25